=== PATIENT | female | born 1960 | race African-American/Black ===

== ENCOUNTER 2019-09-25 05:45 | Emergency (ER) | payer OTHER ==
[~2019-09-25] VITALS: Ht 167.6 cm; Wt 63.5 kg
[2019-09-25] MEDS ORDERED: LASIX 40 MG TAB40 MG PO ×2 (06:08)
[2019-09-25] MEDS ORDERED: NORVASC 2.5 MG2.5 M1 PO (06:09)
[2019-09-25] MEDS ORDERED: CARVEDILOL12.5 MG PO (06:10)
[2019-09-25 06:15] VITALS: BP 179/100
--- NOTE | 2019-09-25 09:31 | EKG ---
[facility] [place] [address] ELECTROCARDIOGRAM REPORT Name: JESSICA DC Room #: DEP [facility]#: [id number] Admission: 09/25/19 Attend Phys: Discharge: 09/25/19 Date of : 62 Report #: [id number] THIS REPORT FOR: cc: NO FAMILY PHYSICIAN or PCP NO FAMILY PHYSICIAN or PCP Patrick Barfield MD [facility] THIS REPORT FOR: //name// [facility] ED Test Date: 2019-09-25 Test Time: 05:58:18 Pat Name: JESSICA DC Department: Room: Gender: Household Worker: [place] [id number] : 1960 Requested By: Yony Flor Order Number: [id number] MD: Patrick Barfield Measurements Intervals [place] Rate: 117 P: 44 CT: 91 QRS: 93 QRSD: 146 T: -67 QT: 384 QTc: 536 Interpretive Statements Ventricular-paced rhythm No further analysis attempted due to paced rhythm Baseline wander in lead(s) V6 No previous ECG available for comparison Electronically Signed On 09-25-2019 9:29:08 CDT by Patrick Barfield [email or web address] <ELECTRONICALLY SIGNED> By: Patrick Barfield MD, [facility] 09/25/19 [id number] [id number] Patrick Barfield MD, [facility] /EPI
== END 2019-09-25 06:30 | disposition home or self-care (01) ==
LOC: ER 05:45
DX: O90.3 Peripartum cardiomyopathy (principal); N18.9 Chronic kidney disease, unspecified; R06.00 Dyspnea, unspecified; I50.9 Heart failure, unspecified; Z95.0 Presence of cardiac pacemaker